=== PATIENT | female | born 1990 | race Caucasian/White ===

== ENCOUNTER → 2017-05-19 | Outpatient (CLI) | payer OTHER ==
[2017-05-19 17:50] LABS: BASO # 0.1 10^3/uL (0.0-0.2); BASO % 0.8 % (0.0-1.0); EOS % 0.7 % (0.0-3.0); HEMATOCRIT 41.1 % (36.0-47.0); HEMOGLOBIN 13.7 g/dl (12.0-16.0); IMMATURE GRANULOCYTE % 0.3 % (0-3.0); LYMPH % 33.2 % (24.0-44.0); MEAN CORPUSCULAR HEMOGLOBIN 29.8 pg (27.0-33.0); MEAN CORPUSCULAR HGB CONC 33.3 g/dl (32.0-36.5); MEAN CORPUSCULAR VOLUME 89.3 fl (80.0-96.0); MONO # 0.5 10^3/uL (0.0-0.8); MONO % 8.2 % (0.0-5.0); NEUTROPHILS # 3.4 10^3/uL (1.8-7.7); NEUTROPHILS % 56.8 % (36.0-66.0); PLATELET COUNT, AUTOMATED 192 10^3/uL (150-450); RED CELL DISTRIBUTION WIDTH 12.3 % (11.5-14.5); WHITE BLOOD COUNT 5.9 10^3/uL (4.0-10.0)
[2017-05-19 18:17] LABS: ALBUMIN 3.9 GM/DL (3.2-5.2); ALBUMIN/GLOBULIN RATIO 1.05 (1.00-1.93); ALKALINE PHOSPHATASE 50 U/L (45-117); ALT/SGPT 27 U/L (12-78); ANION GAP 8 MEQ/L (8-16); AST/SGOT 14 U/L (7-37); BILIRUBIN,TOTAL 0.7 MG/DL (0.2-1.0); BLOOD UREA NITROGEN 10 MG/DL (7-18); CARBON DIOXIDE LEVEL 26 MEQ/L (21-32); CHLORIDE LEVEL 112 MEQ/L (98-107); CHOLESTEROL LEVEL 208 MG/DL (<200); CREATININE FOR GFR 0.98 MG/DL (0.55-1.30); FREE T4 1.03 NG/DL (0.76-1.46); GLOMERULAR FILTRATION RATE > 60.0 (>60); GLUCOSE, FASTING 74 MG/DL (70-100); HDL CHOLESTEROL 74 MG/DL (>40); NON-HDL-C 134 MG/DL; POTASSIUM SERUM 4.6 MEQ/L (3.5-5.1); SODIUM LEVEL 146 MEQ/L (136-145); TOTAL PROTEIN 7.6 GM/DL (6.4-8.2); TRIGLYCERIDES LEVEL 90 MG/DL (<150)
== END ==
LOC: M WUC 11:47
DX: Z00.00 Encounter for general adult medical examination without abnormal findings (principal); F41.8 Other specified anxiety disorders; Z13.220 Encounter for screening for lipoid disorders
CPT/HCPCS: 84443

== ENCOUNTER → 2017-05-24 | Outpatient (CLI) | payer OTHER | LOC: M WHC 08:36 | DX: R22.32 Localized swelling, mass and lump, left upper limb (principal) | CPT/HCPCS: 76642 ==

== ENCOUNTER 2017-08-04 07:20 | Emergency (ER) | payer OTHER ==
[2017-08-04] MEDS: GI COCKTAIL 50ML BTL(HYOSCYAMINE/MAALOX/LIDOCAINE VISCOUS)(1:3:1) PO (08:01)
[2017-08-04] MEDS: ONDANSETRON 4 MG ORAL DISINTEGRATING TAB (Q0162 PER 1MG) PO (08:01)
[2017-08-04 08:19] LABS: BASO # 0.1 10^3/uL (0.0-0.2); BASO % 1.2 % (0.0-1.0); EOS # 0.1 10^3/uL (0.0-0.50); EOS % 1.4 % (0.0-3.0); HEMATOCRIT 39.5 % (36.0-47.0); HEMOGLOBIN 13.4 g/dl (12.0-15.5); IMMATURE GRANULOCYTE % 0.4 % (0-3.0); LYMPH # 1.6 10^3/uL (1.5-6.5); LYMPH % 32.9 % (24.0-44.0); MEAN CORPUSCULAR HEMOGLOBIN 29.8 pg (27.0-33.0); MEAN CORPUSCULAR HGB CONC 33.9 g/dl (32.0-36.5); MEAN CORPUSCULAR VOLUME 87.8 fl (80.0-96.0); MONO # 0.6 10^3/uL (0.0-0.8); MONO % 11.9 % (0.0-5.0); NEUTROPHILS # 2.6 10^3/uL (1.8-7.7); NEUTROPHILS % 52.2 % (36.0-66.0); PLATELET COUNT, AUTOMATED 173 10^3/uL (150-450); RED CELL DISTRIBUTION WIDTH 11.9 % (11.5-14.5)
[2017-08-04 08:25] LABS: AMORPHOUS SEDIMENT RFX SMALL (NEGATIVE); KETONE, URINE AUTO RFX NEGATIVE (NEGATIVE); MUCUS, URINE RFX SMALL (NEGATIVE); NITRITE, URINE AUTO RFX NEGATIVE (NEGATIVE); RBC, URINE AUTO RFX 3 /HPF (0-3); SPECIFIC GRAVITY UR AUTO RFX 1.023 (1.002-1.035); SQUAM EPITHELIAL CELL UR AURFX 12 /HPF (0-6); WBC, URINE AUTO RFX 1 /HPF (0-3)
[2017-08-04 08:34] LABS: CONTROL LINE HCG INT CTR LINE PRESENT; HCG, SERUM QUALITATIVE NEGATIVE (NEGATIVE)
[2017-08-04 08:39] LABS: ALBUMIN 3.5 GM/DL (3.2-5.2); ALKALINE PHOSPHATASE 76 U/L (45-117); ALT/SGPT 47 U/L (12-78); AMYLASE 67 U/L (25-115); ANION GAP 3 MEQ/L (8-16); AST/SGOT 32 U/L (7-37); BILIRUBIN,DIRECT 0.1 MG/DL (0.0-0.2); BILIRUBIN,TOTAL 0.5 MG/DL (0.2-1.0); BLOOD UREA NITROGEN 13 MG/DL (7-18); CALCIUM LEVEL 8.2 MG/DL (8.5-10.1); CARBON DIOXIDE LEVEL 28 MEQ/L (21-32); CHLORIDE LEVEL 109 MEQ/L (98-107); CREATININE FOR GFR 0.76 MG/DL (0.55-1.30); GLOMERULAR FILTRATION RATE > 60.0 (>60); GLUCOSE, FASTING 82 MG/DL (70-100); LIPASE 204 U/L (73-393); POTASSIUM SERUM 3.9 MEQ/L (3.5-5.1); SODIUM LEVEL 140 MEQ/L (136-145); TOTAL PROTEIN 7.4 GM/DL (6.4-8.2)
[2017-08-04 08:46] LABS: LEUKOCYTE ESTERASE UR AUTO RFX 1+ (NEGATIVE)
== END 2017-08-04 09:11 | disposition home or self-care (01) ==
LOC: M ED 07:20
DX: K29.00 Acute gastritis without bleeding (principal); J45.909 Unspecified asthma, uncomplicated; Z87.891 Personal history of nicotine dependence; Z88.2 Allergy status to sulfonamides; Z88.8 Allergy status to other drugs, medicaments and biological substances; Z79.899 Other long term (current) drug therapy
CPT/HCPCS: Q0162

== ENCOUNTER 2017-08-27 07:19 | Day surgery (SDC) | payer OTHER ==
[2017-08-27] MEDS ORDERED: LR 1,000 ML IV (07:30)
[2017-08-27 08:05] LABS: CONTROL LINE UCG INT CTR LINE PRESENT; URINE PREG TEST NEGATIVE (NEGATIVE)
[2017-08-27] MEDS ORDERED: MIDAZOLAM INJ 2 MG/2 ML VIAL (J2250) As Ordered ×2 (08:15→09:34)
[2017-08-27] MEDS ORDERED: fentaNYL 100 MCG/2 ML INJECTION (J3010) As Ordered ×2 (08:16→09:34)
[2017-08-27] MEDS: BUPIVACAINE HCL 0.25% 30 ML VIAL As Ordered (08:33)
[2017-08-27] MEDS: LIDOCAINE 1% SDV INJ 30 ML VIAL As Ordered (08:33)
[2017-08-27] MEDS: LIDOCAINE W/EPINEPHRINE 1% 20ML VIAL As Ordered (09:01)
[2017-08-27] MEDS ORDERED: dexameTHASONE 4 MG/ML 1ML VIAL (J1100) As Ordered (09:34)
[2017-08-27] MEDS ORDERED: ONDANSETRON 4MG/2ML VIAL (J2405) As Ordered (09:34)
[2017-08-27] MEDS ORDERED: PROPOFOL 200 MG/20 ML VIAL As Ordered (09:34)
[2017-08-27] MEDS ORDERED: LIDOCAINE 2% INJ 100 MG/5 ML SDV (FOR ANES.) As Ordered (09:35)
== END 2017-08-27 10:39 | disposition home or self-care (01) ==
LOC: M SDC 07:19
DX: D17.39 Benign lipomatous neoplasm of skin and subcutaneous tissue of other sites (principal); F41.9 Anxiety disorder, unspecified; F32.9 Major depressive disorder, single episode, unspecified; Z88.2 Allergy status to sulfonamides; Z88.8 Allergy status to other drugs, medicaments and biological substances; Z79.899 Other long term (current) drug therapy
CPT/HCPCS: 11401

== ENCOUNTER → 2018-07-02 | Outpatient (CLI) | payer OTHER ==
[~2018-07-02] MED LIST: /MOM400 PO; ANUS2.5C2 TOP; DOCU10ELUD PO; IBUP600T26 PO; NORC1TAB4 PO; PROT1TAB2 PO; STUATAB PO; TYLE325T5 PO; VENL75TA2 PO; ZOFR4TAB14 PO
[2018-07-02 10:23] LABS: BASO % 0.4 % (0.0-1.0); EOS # 0.1 10^3/uL (0.0-0.50); EOS % 0.8 % (0.0-3.0); HEMATOCRIT 37.6 % (36.0-47.0); HEMOGLOBIN 12.9 g/dl (12.0-15.5); LYMPH # 1.5 10^3/uL (1.5-4.5); LYMPH % 19.7 % (24.0-44.0); MEAN CORPUSCULAR HEMOGLOBIN 30.7 pg (27.0-33.0); MEAN CORPUSCULAR HGB CONC 34.3 g/dl (32.0-36.5); MEAN CORPUSCULAR VOLUME 89.5 fl (80.0-96.0); MONO # 0.5 10^3/uL (0.0-0.8); NEUTROPHILS # 5.6 10^3/uL (1.8-7.7); NEUTROPHILS % 72.8 % (36.0-66.0); PLATELET COUNT, AUTOMATED 186 10^3/uL (150-450); WHITE BLOOD COUNT 7.6 10^3/uL (4.0-10.0)
[2018-07-02 15:12] LABS: CHLAMYDIA DNA AMPLIFICATION NEGATIVE (NEGATIVE); GC DNA AMPLIFICATION NEGATIVE (NEGATIVE)
[2018-07-04 09:54] LABS: HEPATITIS C VIRUS ABY INDEX 0.1 INDEX (<0.8); HIV 1&2 SCREEN CENTAUR NEGATIVE (NEGATIVE); RUBELLA IgG QUALITATIVE IMMUNE (IMMUNE)
== END ==
LOC: M LAB 09:43
PROVIDERS: ATTEND Advanced Practice Midwife
DX: Z34.81 Encounter for supervision of other normal pregnancy, first trimester (principal); Z3A.00 Weeks of gestation of pregnancy not specified

== ENCOUNTER → 2018-08-09 | Outpatient (CLI) | payer OTHER ==
[~2018-08-09] MED LIST changes: -/MOM400 PO; -DOCU10ELUD PO; +DOCU5LIQ PO; +MILK10SU PO; -NORC1TAB4 PO; +NORC1TAB7 PO
--- NOTE | 2018-08-10 04:38 | REP ---
Clinical: Anatomical evaluation. Comparison: None . Findings: Examination demonstrates a single live intrauterine in variable presentation. motion is identified by technologist. Placenta is noted posterior and grade zero without evidence for placenta previa or abruption. Amniotic fluid volume is normal. Cervix measures 4.2 cm in length and appears closed. No evidence for nuchal cord. Gestational age by current measurements 18 weeks 2 days with JOHN 01/08/2019 . FHR equals 147 beats per minute. BPD 4.0 cm 18 weeks 1 day HC 14.4 cm 17 weeks 4 days AC 12.7 cm 18 weeks 2 days FL 2.7 cm 18 weeks 2 days HL 2.7 cm 18 weeks 6 days HC/AC ratio 1.13 Estimated weight 231 grams ( 44th percentile). Anatomical assessment demonstrates normal structures including cranium, choroid plexus, cavum, cerebellum/posterior fossa, facial features, lungs, four-chamber heart/ventricular outflow tracts, diaphragm, stomach, cord insertion/three-vessel cord, kidneys/bladder, spine, and extremities. Impression: Single live intrauterine in variable presentation demonstrating appropriate estimated weight. Anatomical assessment is complete and normal. No gross abnormalities are identified. Electronically Signed by Tripp Vazquez MD 08/10/2018 04:29 A
== END ==
LOC: M RAD 08:41
PROVIDERS: ATTEND Advanced Practice Midwife
DX: Z34.82 Encounter for supervision of other normal pregnancy, second trimester (principal); Z3A.18 18 weeks gestation of pregnancy

== ENCOUNTER → 2018-10-13 | Outpatient (CLI) | payer OTHER ==
[2018-10-13 14:36] LABS: HEMATOCRIT 35.7 % (36.0-47.0); HEMOGLOBIN 11.8 g/dl (12.0-15.5); MEAN CORPUSCULAR HEMOGLOBIN 30.6 pg (27.0-33.0); MEAN CORPUSCULAR HGB CONC 33.1 g/dl (32.0-36.5); MEAN CORPUSCULAR VOLUME 92.7 fl (80.0-96.0); PLATELET COUNT, AUTOMATED 174 10^3/uL (150-450); RED BLOOD COUNT 3.85 10^6/uL (4.00-5.40); WHITE BLOOD COUNT 9.4 10^3/uL (4.0-10.0)
== END ==
LOC: M SMT 08:29
PROVIDERS: ATTEND Advanced Practice Midwife
DX: Z36.89 Encounter for other specified antenatal screening (principal); Z3A.00 Weeks of gestation of pregnancy not specified

== ENCOUNTER 2018-11-22 19:11 | Emergency (ER) | payer OTHER ==
[~2018-11-22] VITALS: Ht 162.6 cm; Wt 74.2 kg
[2018-11-22 20:39] VITALS: BP 96/67
== END 2018-11-22 21:05 | disposition left against medical advice (07) ==
LOC: EDBD 19:11 → M ED 20:31
DX: O9A.213 Injury, poisoning and certain other consequences of external causes complicating pregnancy, third trimester (principal); S80.02XA Contusion of left knee, initial encounter; S10.83XA Contusion of other specified part of neck, initial encounter; V49.40XA Driver injured in collision with unspecified motor vehicles in traffic accident, initial encounter; Z88.2 Allergy status to sulfonamides; Z88.8 Allergy status to other drugs, medicaments and biological substances; Z91.018 Allergy to other foods; Z79.899 Other long term (current) drug therapy

== ENCOUNTER → 2018-12-14 | Outpatient (REF) | payer OTHER | LOC: M LAB REF 12:57 | PROVIDERS: ATTEND Advanced Practice Midwife | DX: Z34.83 Encounter for supervision of other normal pregnancy, third trimester (principal) ==

== ENCOUNTER 2019-01-01 02:16 | Inpatient (IN) | payer OTHER ==
[~2019-01-01] VITALS: Ht 162.6 cm; Wt 70.2 kg
[2019-01-01 02:48] VITALS: BP 124/86
[2019-01-01] MEDS ORDERED: ACETAMINOPHEN TAB 650MG DOSE (2X325MG) PO PRN (03:00)
[2019-01-01] MEDS ORDERED: OXYTOCIN INJ 10 UNITS/ML VIAL (J2590) IM ONE (03:00)
[2019-01-01] MEDS ORDERED: MEASLES,MUMPS,RUBELLA VACCINE INJ (MMR-II) (90707) SC SCH (03:00)
[2019-01-01] MEDS ORDERED: ONDANSETRON 4MG/2ML VIAL (J2405) IV PRN (03:00)
[2019-01-01] MEDS ORDERED: PROMETHAZINE 25 MG TAB PO PRN (03:00)
[2019-01-01] MEDS ORDERED: DIBUCAINE 1% OINTMENT 30GM TOP PRN (03:00)
[2019-01-01] MEDS ORDERED: DOCUSATE SODIUM 100 MG CAP PO PRN (03:00)
[2019-01-01] MEDS ORDERED: RHOGAM 300 MCG (1500 IU) INJ (J2790) IM SCH (03:00)
[2019-01-01] MEDS ORDERED: IBUPROFEN 600 MG TAB PO PRN (03:00)
[2019-01-01 03:03] VITALS: BP 118/81
[2019-01-01 03:18] VITALS: BP 113/82
[2019-01-01 03:33] VITALS: BP 114/76
[2019-01-01 04:29] LABS: HEMATOCRIT 36.3 % (36.0-47.0); HEMOGLOBIN 12.2 g/dl (12.0-15.5); MEAN CORPUSCULAR HEMOGLOBIN 29.9 pg (27.0-33.0); MEAN CORPUSCULAR HGB CONC 33.6 g/dl (32.0-36.5); PLATELET COUNT, AUTOMATED 169 10^3/uL (150-450); RED BLOOD COUNT 4.08 10^6/uL (4.00-5.40); WHITE BLOOD COUNT 9.5 10^3/uL (4.0-10.0)
[2019-01-01 06:07] VITALS: BP 103/69
[2019-01-01] MEDS: PRENATAL VITAMINS CHEWABLE TABLET PO SCH (08:41)
[2019-01-01] MEDS: IBUPROFEN 800 MG TAB PO PRN ×2 (12:52→22:49)
[2019-01-01] MEDS: ACETAMINOPHEN 500 MG TAB PO PRN (17:01)
[2019-01-01 18:07] VITALS: BP 97/54
[2019-01-02 05:00] VITALS: BP 113/70
[2019-01-02] MEDS: ACETAMINOPHEN 500 MG TAB PO PRN (05:15)
[2019-01-02 06:00] VITALS: BP 105/55
[2019-01-02] MEDS: PRENATAL VITAMINS CHEWABLE TABLET PO SCH (09:00)
[2019-01-02] MEDS ORDERED: IBUP80TA PO (09:59)
== END 2019-01-02 15:45 | disposition home or self-care (01) | DRG 560 ==
LOC: M LDO 02:16 → M LDI 02:32 → M OBS 04:30
PROVIDERS: ADMIT Obstetrics & Gynecology; ATTEND Obstetrics & Gynecology
PROC: 10E0XZZ Delivery of Products of Conception, External Approach (ICD-10-PCS; principal; 2019-01-01)
DX: O80 Encounter for full-term uncomplicated delivery (principal); Z37.0 Single live birth; Z3A.38 38 weeks gestation of pregnancy

== ENCOUNTER 2019-03-17 09:21 | Day surgery (SDC) | payer OTHER ==
[~2019-03-17] VITALS: Ht 162.6 cm; Wt 59.8 kg
[~2019-03-17 09:21] MED LIST changes: +ACETAMINOPHEN 1000MG 100ML IV BTL (OFIRMEV) (J0131 PER 10MG) As Ordered ONE; +EFFE150C2 PO; +IBUP80TA PO; +KETOROLAC 60 MG/2 ML VIAL (J1885) As Ordered ONE; +LIDOCAINE 1% MDV 20ML VIAL SQ PRN; +LIDOCAINE 2% INJ 100 MG/5 ML SDV (FOR ANES.) As Ordered ONE; +LR 1,000 ML IV ONE; +MIDAZOLAM INJ 2 MG/2 ML VIAL (J2250) As Ordered ONE; +NUVAMIS2 PV; +ONDANSETRON 4MG/2ML VIAL (J2405) As Ordered ONE; +PROPOFOL 200 MG/20 ML VIAL As Ordered ONE; +ROCURONIUM BROMIDE 50 MG/5 ML VIAL As Ordered ONE; +SUGAMMADEX SODIUM 500 MG/5 ML VIAL (BRIDION) As Ordered ONE; +dexameTHASONE 4 MG/ML 1ML VIAL (J1100) As Ordered ONE; +fentaNYL 100 MCG/2 ML INJECTION (J3010) As Ordered ONE
[2019-03-17 09:59] LABS: HEMATOCRIT 45.1 % (36.0-47.0); HEMOGLOBIN 14.7 g/dl (12.0-15.5); MEAN CORPUSCULAR HEMOGLOBIN 28.9 pg (27.0-33.0); MEAN CORPUSCULAR HGB CONC 32.6 g/dl (32.0-36.5); MEAN CORPUSCULAR VOLUME 88.6 fl (80.0-96.0); PLATELET COUNT, AUTOMATED 211 10^3/uL (150-450); RED BLOOD COUNT 5.09 10^6/uL (4.00-5.40); WHITE BLOOD COUNT 7.2 10^3/uL (4.0-10.0)
[2019-03-17] MEDS ORDERED: BUPIVACAINE HCL 0.25% 30 ML VIAL As Ordered ONE (11:16)
[2019-03-17] MEDS ORDERED: OXYC1TAB23 PO (12:32)
[2019-03-17] MEDS ORDERED: IBUP80TA PO (12:32)
[2019-03-17] MEDS ORDERED: LR 1,000 ML IV SCH ×2 (13:00)
[2019-03-17] MEDS ORDERED: fentaNYL 100 MCG/2 ML INJECTION (J3010) IV PRN (13:00)
[2019-03-17] MEDS ORDERED: ONDANSETRON 4MG/2ML VIAL (J2405) IV PRN (13:00)
[2019-03-17] MEDS ORDERED: oxyCODONE 5MG TAB PO PRN (13:00)
[2019-03-17 14:00] VITALS: BP 120/80
== END 2019-03-17 14:15 | disposition home or self-care (01) ==
LOC: M SDC 09:21
PROVIDERS: ATTEND Obstetrics & Gynecology
DX: Z30.2 Encounter for sterilization (principal); J45.909 Unspecified asthma, uncomplicated; F17.218 Nicotine dependence, cigarettes, with other nicotine-induced disorders; Z79.899 Other long term (current) drug therapy; F41.9 Anxiety disorder, unspecified; F32.9 Major depressive disorder, single episode, unspecified; Z88.2 Allergy status to sulfonamides; Z88.8 Allergy status to other drugs, medicaments and biological substances; Z91.018 Allergy to other foods
CPT/HCPCS: 36415; 58661; 84702; 85027; 86850; 86900; 86901; 88302; J0131; J1100; J1885; J2250; J2405; J3010

== ENCOUNTER → 2020-10-13 | Outpatient (REF) | payer OTHER ==
[~2020-10-13] MED LIST changes: -ACETAMINOPHEN 1000MG 100ML IV BTL (OFIRMEV) (J0131 PER 10MG) As Ordered ONE; -KETOROLAC 60 MG/2 ML VIAL (J1885) As Ordered ONE; -LIDOCAINE 1% MDV 20ML VIAL SQ PRN; -LIDOCAINE 2% INJ 100 MG/5 ML SDV (FOR ANES.) As Ordered ONE; -LR 1,000 ML IV ONE; -MIDAZOLAM INJ 2 MG/2 ML VIAL (J2250) As Ordered ONE; -ONDANSETRON 4MG/2ML VIAL (J2405) As Ordered ONE; +OXYC1TAB23 PO; -PROPOFOL 200 MG/20 ML VIAL As Ordered ONE; -ROCURONIUM BROMIDE 50 MG/5 ML VIAL As Ordered ONE; -SUGAMMADEX SODIUM 500 MG/5 ML VIAL (BRIDION) As Ordered ONE; -dexameTHASONE 4 MG/ML 1ML VIAL (J1100) As Ordered ONE; -fentaNYL 100 MCG/2 ML INJECTION (J3010) As Ordered ONE
== END ==
LOC: M LAB REF 18:28
PROVIDERS: ATTEND Physician Assistant Medical
DX: J02.9 Acute pharyngitis, unspecified (principal); R50.9 Fever, unspecified

== ENCOUNTER 2021-01-20 12:13 | Emergency (ER) | payer OTHER ==
[~2021-01-20] VITALS: Ht 162.6 cm; Wt 56.4 kg
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
[2021-01-20] MEDS ORDERED: KETOROLAC 30 MG/ML 1ML VIAL IV ONE (14:05)
[2021-01-20] MEDS ORDERED: NS 1,000 ML IV ONE (14:05)
[2021-01-20 14:17] LABS: HEMATOCRIT 36.4 % (36.0-47.0); HEMOGLOBIN 12.1 g/dl (12.0-15.5); MEAN CORPUSCULAR HEMOGLOBIN 30.3 pg (27.0-33.0); MEAN CORPUSCULAR HGB CONC 33.2 g/dl (32.0-36.5); MEAN CORPUSCULAR VOLUME 91.2 fl (80.0-96.0); PLATELET COUNT, AUTOMATED 181 10^3/uL (150-450); RED BLOOD COUNT 3.99 10^6/uL (4.00-5.40); WHITE BLOOD COUNT 11.1 10^3/uL (4.0-10.0)
[2021-01-20 14:18] LABS: BLOOD UREA NITROGEN 12 MG/DL (7-18); CALCIUM LEVEL 8.4 MG/DL (8.5-10.1); CARBON DIOXIDE LEVEL 28 MEQ/L (21-32); CHLORIDE LEVEL 108 MEQ/L (98-107); GLOMERULAR FILTRATION RATE > 60.0 (>60); GLUCOSE, FASTING 131 MG/DL (70-100); SODIUM LEVEL 137 MEQ/L (136-145)
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
[2021-01-20 15:40] LABS: HCG, SERUM QUALITATIVE NEGATIVE (NEGATIVE)
[2021-01-20 16:43] LABS: ALBUMIN 3.1 GM/DL (3.2-5.2); ALT/SGPT 23 U/L (12-78); BILIRUBIN,DIRECT 0.2 MG/DL (0.0-0.2); BILIRUBIN,TOTAL 0.6 MG/DL (0.2-1.0); LIPASE 65 U/L (73-393); TOTAL PROTEIN 6.9 GM/DL (6.4-8.2)
--- NOTE | 2021-01-20 16:44 | REP ---
INDICATION: left flank pain, eval for ureteral calc/hydro COMPARISON: None. TECHNIQUE: CT Scan of the abdomen and pelvis was performed without intravenous contrast. Sagittal and coronal reconstruction images performed. FINDINGS: Lung bases: Unremarkable. Liver: Grossly unremarkable. Gallbladder: Unremarkable. Spleen: Grossly unremarkable. Adrenals: Normal. Pancreas: Grossly unremarkable.. Kidneys: No hydronephrosis or nephrolithiasis. Ureters demonstrate no dilatation or calculus. Small and large bowel: Grossly unremarkable. Free fluid: There is trace free fluid in the pelvis. Abdominal aorta: No aneurysm. Adenopathy: None. Appendix: Not inflamed. Osseous structures: Unremarkable. Pelvis: No mass. No bladder calculus seen. IMPRESSION: Negative non-contrast CT abdomen and pelvis. <Electronically signed by Kevon Bustamante > 01/20/21 1640
[2021-01-20 17:05] VITALS: BP 102/63
== END 2021-01-20 17:27 | disposition home or self-care (01) ==
LOC: M ED 12:13
DX: R10.9 Unspecified abdominal pain (principal); F33.9 Major depressive disorder, recurrent, unspecified; F41.9 Anxiety disorder, unspecified; Z88.2 Allergy status to sulfonamides; Z88.8 Allergy status to other drugs, medicaments and biological substances; Z91.018 Allergy to other foods
CPT/HCPCS: 74176; 80048; 80076; 81001; 83690; 84703; 85027; 96361; 96374; 99284; J1885; U0003

== ENCOUNTER 2022-05-09 20:46 | Emergency (ER) | payer MEDICAID, OTHER ==
[~2022-05-09] VITALS: Ht 162.6 cm; Wt 67.0 kg
[2022-05-09 20:47] VITALS: BP 130/62
[2022-05-09] MEDS ORDERED: TEGR1TAB PO (20:53)
[2022-05-09] MEDS ORDERED: ACETAMINOPHEN TAB 650MG DOSE (2X325MG) PO ONE (21:40)
[2022-05-09] MEDS ORDERED: KETOROLAC 60MG 2ML VIAL IM ONE (21:40)
[2022-05-09] MEDS ORDERED: KETO10TAB PO (22:51)
== END 2022-05-09 22:59 | disposition home or self-care (01) ==
LOC: M ED 20:46
DX: R53.81 Other malaise (principal); R50.9 Fever, unspecified; M79.10 Myalgia, unspecified site; G50.0 Trigeminal neuralgia; F17.200 Nicotine dependence, unspecified, uncomplicated; Z88.2 Allergy status to sulfonamides; Z88.8 Allergy status to other drugs, medicaments and biological substances; Z91.018 Allergy to other foods; Z79.899 Other long term (current) drug therapy
CPT/HCPCS: 96372; 99283; J1885

== ENCOUNTER 2023-06-26 10:49 | Emergency (ER) | payer OTHER ==
[~2023-06-26] VITALS: Ht 162.6 cm; Wt 58.6 kg
[~2023-06-26 10:49] MED LIST changes: -EFFE150C2 PO; +EFFE150C3 PO; +ETON1VAG7 PV; +KETO10TAB PO; -NUVAMIS2 PV; +PEPC1TAB5 PO; +REGL10TA6 PO; +TEGR1TAB PO
[2023-06-26] MEDS: AMOXICILLIN 500 MG CAP PO ONE (11:53)
[2023-06-26] MEDS: PERCOCET 5MG/325MG TAB PO ONE (11:53)
[2023-06-26] MEDS: IBUPROFEN 600MG TAB PO ONE (11:54)
[2023-06-26] MEDS ORDERED: PERI0.126 PO (12:03)
[2023-06-26] MEDS ORDERED: NAPR-837 PO (12:03)
[2023-06-26] MEDS ORDERED: MAGICMW SSP (12:03)
[2023-06-26] MEDS ORDERED: AMOX500C PO (12:03)
[2023-06-26 12:11] VITALS: BP 129/91; TEMP 97.7; O2SAT 100
== END 2023-06-26 12:14 | disposition home or self-care (01) ==
LOC: M ED 10:49
DX: K04.7 Periapical abscess without sinus (principal); K08.89 Other specified disorders of teeth and supporting structures; F17.210 Nicotine dependence, cigarettes, uncomplicated; F60.3 Borderline personality disorder; Z88.8 Allergy status to other drugs, medicaments and biological substances; Z88.2 Allergy status to sulfonamides; Z91.018 Allergy to other foods; Z79.2 Long term (current) use of antibiotics; Z79.899 Other long term (current) drug therapy

== ENCOUNTER → 2023-10-08 | Outpatient (CLI) | payer MEDICAID ==
[~2023-10-08] MED LIST changes: +AMOX500C PO; +MAGICMW SSP; +NAPR-837 PO; +PERI0.126 PO
== END ==
LOC: M OUTALCOH 08:14
PROVIDERS: ATTEND Psychiatry & Neurology Psychiatry
DX: F14.20 Cocaine dependence, uncomplicated (principal); F15.20 Other stimulant dependence, uncomplicated; F17.200 Nicotine dependence, unspecified, uncomplicated